=== PATIENT | male | born 1955 | race Caucasian/White ===

== ENCOUNTER 2025-05-04 09:55 | Outpatient (AMB) | payer MEDICARE, SELFPAY ==
--- OUTSIDE RECORDS SUMMARY | 2025-05-04 10:03 | XMS_ITS | Continuity of Care Document ---
Author Organization [facility] Address [address] [place], [place] Phone [phone] Care Team Providers Care Railroad Brake Operator Name Role Phone Jayde Brandon PA-C Care Team Information Receiv er Unavailable ZION JORGE M.D. Care Team Information Rec eiver Unavailable Jayde Brandon PA-C Primary Care Physician Unava ilable Social History Type Date Description Comments Sex Male Sex Unknown
--- NOTE | 2025-05-04 10:44 | A.OFFVIS_ITS ---
Intake Visit Reasons: history of Prostate Cancer/Kidney Stones(set) Intake Note: Reason for Visit: New Patient History of Prostate Cancer/Kidney Stones Urology Meds: Tadalafil, Testosterone Blood Thinners: None Antibiotic Allergy: None Labs: None Imaging: None Last PVR: None Family History: Prostate Cancer? no Bladder Cancer?no Kidney Cancer?no Smoking History? Former Previous Urology? [place] [facility] Required: No Accompanied by: Self / Same As Patient Allergies lamotrigine Allergy (Severe, Verified 05/04/25 10:47) Rash Nitrate Analogues Allergy (Severe, Verified 05/04/25 10:47) Unknown HPI Comments Details: Olaf is a pleasant male. He is a patient of Dr. Brandon. He is seen for the following urologic conditions - prostate cancer - hypogonadism - erectile dysfunction Change dosing to weekly in order to reduce peak and trough and reduce potential for hematocrit evaluation Continue tadalafil 5 mg daily - intention is for bladder stability not erectile function Recent diabetes diagnosis 2023 Prior history kidney stones Hypogonadism Longstanding Predates treatment for prostate cancer Traditionally using every 2 week dosing Switch to weekly 0.4 cc, 80 mg Continue surveillance lab work Prostate Cancer Underwent radical prostatectomy 2018 Per patient low volume, low-grade, organ confined Erectile dysfunction Minimal erections Remains on daily 5 mg tadalafil PFSH Medical History (Updated 05/04/25 @ 11:13 by Sanjay Rodrigues MD) Erectile dysfunction Hyperlipidemia Male hypogonadism History of prostate cancer Onychomycosis of toenail Migraine Bipolar disorder Ureteral stone Loss of teeth Temporary memory loss Diastasis recti Small vessel disease, cerebrovascular Diabetes mellitus, type II Surgical History History of radical prostatectomy Family History Mother Lung cancer Tumor of breast Sister Tumor of breast Father Heart disease Hyperlipidemia Coronary arteriosclerosis Social History Patient Tobacco Use Status: Former Tobacco user Review of Systems Const Denies chills and Denies fever(s) Card Reports no additional complaints and Denies syncope Resp Denies cough GI Denies abdominal pain and Denies heartburn Reports as per HPI and Denies change in libido Neuro Denies syncope Psych Denies change in libido Endo Denies change in libido Physical Exam Const General: cooperative, healthy appearing, comfortable and no acute distress Orientation/consciousness: patient oriented x3 HEENT Face and sinus: Yes normal facial exam Mouth: moist mucous membranes Neck Neck: Yes normal visual inspection, Yes full ROM and Yes trachea midline Chest Chest palpation & inspection: normal inspection of the chest Resp Effort & Inspection: normal respiratory effort, able to speak in complete sentences and no respiratory distress GI Inspection: Yes normal to inspection Back/Spine/Pelvis Cervical Spine: normal cervical lordosis Thoracic/Lumbar Spine: thoracic and lumbar spine normal to inspection Skin General skin exam: no rashes or lesions noted Neuro General: patient oriented x3, gait normal, tone normal and moves all extremities Extrem General: Yes normal to inspection and Yes capillary refill normal Assessment & Plan Assessment & Plan (1) Erectile dysfunction after radical prostatectomy: Code(s): N52.31 - Erectile dysfunction following radical prostatectomy Category: Medical (2) History of prostate cancer: Code(s): Z85.46 - Personal history of malignant neoplasm of prostate Category: Medical (3) Male hypogonadism: Code(s): E29.1 - Testicular hypofunction Category: Medical Plan Prescriptions Continue surveillance laboratories Orders: Orders Testosterone, Total 5 Months E29.1 - Testicular hypofunction Prostate Specific Antigen 5 Months E29.1 - Testicular hypofunction Hematocrit 5 Months E29.1 - Testicular hypofunction Medications: New testosterone cypionate (Depo-Testosterone) 80 mg (0.4 mL) subcut QWEEK 2 mL 5RF 4 weeks E29.1 - Testicular hypofunction tadalafil 5 mg PO DAILY 90 tabs 1RF sexual activity 90 days E29.1 - Testicular hypofunction, N32.0 - Bladder-neck obstruction, N52.01 - Erectile dysfunction due to arterial insufficiency Patient Instructions: This note is constructed using voice recognition software. While every effort has been made to ensure accuracy regional sales consultant errors may have been included. Imaging studies, laboratory and physical exam results were discussed and reviewed in detail. No major barriers to patient understanding were identified. An opportunity to ask questions regarding the treatment plan was provided. All questions were answered. The patient expressed understanding and agreement with the above treatment plan. The patient is aware they should contact our office by phone for worsening of their current condition or the appearance of new urologic symptoms. Compliance is encouraged with any medications and followup testing that is ordered. It is a privilege to participate in the urologic care of your patient. If you have any questions or concerns regarding treatment for the above conditions, or other urologic issues, please do not hesitate to contact me. The office telephone contact is [phone]. Sincerely, Dr Sanjay Rodrigues MD, [facility] - Urology Compassionate Specialist Care for the Genitourinary System Coding Level of Care Code New Pt Level 4 (95139) Diagnoses Erectile dysfunction after radical prostatectomy N52.31 History of prostate cancer Z85.46 Male hypogonadism E29.1
== END 2025-05-04 11:21 | disposition home or self-care (01) ==
PROVIDERS: PCP Physician Assistant; Visit Provider Urology
DX: N52.31 Erectile dysfunction following radical prostatectomy (principal); Z85.46 Personal history of malignant neoplasm of prostate; E29.1 Testicular hypofunction
CPT/HCPCS: 99204

== ENCOUNTER → 2025-05-04 09:55 | Outpatient (BNVA) | payer MEDICARE, SELFPAY | PROVIDERS: PCP Physician Assistant; Visit Provider Urology | DX: N52.31 Erectile dysfunction following radical prostatectomy (principal); E29.1 Testicular hypofunction; Z85.46 Personal history of malignant neoplasm of prostate; Z87.891 Personal history of nicotine dependence | CPT/HCPCS: 99202 ==